=== PATIENT | female | born 1970 | race Caucasian/White ===

== ENCOUNTER 2018-12-24 12:16 | Inpatient (IN) | payer OTHER ==
[2018-12-24] MEDS: SODIUM CHLORIDE 0.9% 1L BAG IV* (12:35)
[2018-12-24 13:07] LABS: ADD MAN DIFF? NO
[2018-12-24 13:09] LABS: WHITE BLOOD COUNT 5.7 10^3/ul (4.8-10.8)
[2018-12-24 13:09] LABS: BASOPHILS % 0.5 % (0.0-2.0); EOSINOPHILS # 0.1 10^3/ul (0.0-0.5); EOSINOPHILS % 1.7 % (0.0-7.0); HEMATOCRIT 32.4 % (37.0-47.0); HEMOGLOBIN 10.5 g/dl (12.0-16.0); LYMPHOCYTES # 1.6 10^3/ul (0.8-2.9); LYMPHOCYTES % 27.4 % (15.0-51.0); MEAN CORPUSCULAR HEMOGLOBIN 28.1 pg (29.0-33.0); MEAN CORPUSCULAR HGB CONC 32.4 g/dl (32.0-37.0); MEAN CORPUSCULAR VOLUME 86.6 fl (82.0-101.0); MEAN PLATELET VOLUME 10.3 fl (7.4-10.4); MONOCYTE # 0.4 10^3/ul (0.3-0.9); MONOCYTES % 6.8 % (0.0-11.0); NEUTROPHIL # 3.6 10^3/ul (1.6-7.5); NEUTROPHILS % 63.3 % (39.0-77.0); PLATELET COUNT 207 10^3/UL (140-415); RED BLOOD COUNT 3.74 10^6/ul (4.20-5.40)
[2018-12-24] MEDS: CEFEPIME 2GM/50 ML (PMX) 50 ML IVPB (13:16)
[2018-12-24] MEDS: ACETAMINOPHEN 650 MG SUPP PR (13:17)
[2018-12-24 13:27] LABS: ALANINE AMINOTRANSFERASE 17 IU/L (13-69); ALKALINE PHOSPHATASE 85 IU/L (42-121); ANION GAP 13 (5-13); ASPARTATE AMINO TRANSFERASE 21 IU/L (15-46); BILIRUBIN,INDIRECT 0.4 mg/dl (0-1.1); BILIRUBIN,TOTAL 0.4 mg/dl (0.2-1.3); BLOOD UREA NITROGEN 14 mg/dl (7-20); CALCIUM 8.8 mg/dl (8.4-10.2); CARBON DIOXIDE 18 mmol/L (21-31); CHLORIDE 112 mmol/L (97-110); CREATININE 0.59 mg/dl (0.44-1.00); Estimated GFR > 60 mL/min (>60); GLUCOSE 183 mg/dl (70-220); SODIUM 143 mmol/L (135-144)
[2018-12-24 13:33] LABS: POTASSIUM 2.9 mmol/L (3.5-5.1)
[2018-12-24 13:36] LABS: INR 1.04; PROTIME 13.7 Sec (11.9-14.9); PT RATIO 1.1
[2018-12-24 13:39] LABS: TROPONIN-I < 0.012 ng/ml (0.000-0.120)
[2018-12-24] MEDS: VANCOMYCIN 1 GM (PMX) 250 ML IVPB (13:53)
[2018-12-24 14:06] LABS: ADD UMIC YES; UR ASCORBIC ACID 20 mg/dL (NEGATIVE); UR BACTERIA FEW /HPF (NONE SEEN); UR BILIRUBIN (Dip) NEGATIVE (NEGATIVE); UR BLOOD (Dip) NEGATIVE (NEGATIVE); UR CLARITY SLIGHTLY CLOUDY (CLEAR); UR COLOR AMBER (YELLOW); UR GLUCOSE (Dip) NEGATIVE (NEGATIVE); UR KETONES (Dip) NEGATIVE (NEGATIVE); UR LEUKOCYTE ESTERASE (Dip) NEGATIVE Leu/ul (NEGATIVE); UR MUCUS FEW /HPF (NONE SEEN); UR NITRITE (Dip) POSITIVE (NEGATIVE); UR RBC 1 /HPF (0-5); UR SPECIFIC GRAVITY (Dip) 1.023 (1.003-1.030); UR TOTAL PROTEIN (Dip) 2+ mg/dl (NEGATIVE); UR UROBILINOGEN (Dip) NEGATIVE (NEGATIVE); UR WBC 13 /HPF (0-5)
[2018-12-24 14:17] LABS: BARBITURATES Negative (NEGATIVE); BENZODIAZEPINES Negative (NEGATIVE); CANNABINOIDS Positive (NEGATIVE); COCAINE Negative (NEGATIVE); OPIATES Negative (NEGATIVE)
[2018-12-24 14:25] LABS: ACETAMINOPHEN < 10.0 ug/ml (10.0-30.0)
[2018-12-24 14:26] LABS: ETHANOL < 10.0 mg/dl (0-0); SALICYLATE < 1.0 mg/dl (5.0-30.0)
[2018-12-24 14:29] LABS: AMPHETAMINE/METHAMPHETAMINE POSITIVE (NEGATIVE)
[2018-12-24] MEDS ORDERED: ONDANSETRON 4 MG INJ (16:56)
[2018-12-24] MEDS: ONDANSETRON 4 MG INJ IV (17:40)
[2018-12-24] MEDS: POTASSIUM CHLORIDE (SR) 20 MEQ TAB PO (20:13)
[2018-12-24] MEDS ORDERED: ACETAMINOPHEN 325 MG TAB PO (20:30)
[2018-12-24] MEDS ORDERED: DOCUSATE SODIUM 100 MG CAP PO (20:30)
[2018-12-24] MEDS ORDERED: BISACODYL (EC) 5 MG TAB PO (20:30)
[2018-12-24] MEDS ORDERED: NACL 0.9% 3 ML SYG IV (20:30)
[2018-12-24] MEDS ORDERED: ONDANSETRON 4 MG INJ IV (20:30)
[2018-12-24] MEDS ORDERED: LORAZEPAM 2 MG INJ IV (20:30)
[2018-12-24] MEDS: 1/2 NS + KCL 20 MEQ 1,000 ML IV (21:30)
[2018-12-24] MEDS: HALOPERIDOL 5 MG INJ IM (22:23)
[2018-12-24] MEDS: LORAZEPAM 2 MG INJ IV (22:24)
[2018-12-24] MEDS: POTASSIUM CHLORIDE 100 ML IVPB (22:29)
[2018-12-24] MEDS: MAGNESIUM SULFATE 1 GM/D5W 100 ML IVPB (22:29)
[2018-12-24] MEDS: SOD CHLORIDE 0.9% 1,000 ML IV (22:36)
[2018-12-24 22:38] LABS: MAGNESIUM 1.6 mg/dl (1.7-2.5)
[2018-12-24 22:47] LABS: B-TYPE NATRIURETIC PEPTIDE 111 PG/ML (0-125)
[2018-12-25] MEDS: POTASSIUM CHLORIDE 100 ML IVPB (01:56)
[2018-12-25] MEDS ORDERED: VANCOMYCIN IV PER PHARMACY XX (05:00)
[2018-12-25] MEDS: VANCOMYCIN 1 GM 250 ML IVPB (06:35)
[2018-12-25 06:56] LABS: ADD MAN DIFF? NO
[2018-12-25 06:58] LABS: WHITE BLOOD COUNT 9.4 10^3/ul (4.8-10.8)
[2018-12-25 06:58] LABS: BASOPHILS % 0.4 % (0.0-2.0); EOSINOPHILS % 0.2 % (0.0-7.0); HEMATOCRIT 30.3 % (37.0-47.0); HEMOGLOBIN 9.8 g/dl (12.0-16.0); LYMPHOCYTES # 1.5 10^3/ul (0.8-2.9); LYMPHOCYTES % 15.5 % (15.0-51.0); MEAN CORPUSCULAR HEMOGLOBIN 28.3 pg (29.0-33.0); MEAN CORPUSCULAR HGB CONC 32.3 g/dl (32.0-37.0); MEAN CORPUSCULAR VOLUME 87.6 fl (82.0-101.0); MEAN PLATELET VOLUME 10.3 fl (7.4-10.4); MONOCYTE # 0.4 10^3/ul (0.3-0.9); MONOCYTES % 4.1 % (0.0-11.0); NEUTROPHIL # 7.4 10^3/ul (1.6-7.5); NEUTROPHILS % 79.3 % (39.0-77.0); PLATELET COUNT 175 10^3/UL (140-415); RED BLOOD COUNT 3.46 10^6/ul (4.20-5.40); RED CELL DISTRIBUTION WIDTH 16.4 % (11.5-14.5)
[2018-12-25 07:19] LABS: HEMOGLOBIN A1C 7.4 % (0-5.9)
[2018-12-25 07:25] LABS: MAGNESIUM 1.7 mg/dl (1.7-2.5)
[2018-12-25 07:28] LABS: ALANINE AMINOTRANSFERASE 22 IU/L (13-69); ALBUMIN 2.9 g/dl (3.3-4.9); ALKALINE PHOSPHATASE 69 IU/L (42-121); ANION GAP 7 (5-13); ASPARTATE AMINO TRANSFERASE 18 IU/L (15-46); BILIRUBIN,INDIRECT 0.6 mg/dl (0-1.1); BILIRUBIN,TOTAL 0.6 mg/dl (0.2-1.3); BLOOD UREA NITROGEN 10 mg/dl (7-20); CALCIUM 8.4 mg/dl (8.4-10.2); CARBON DIOXIDE 24 mmol/L (21-31); CHLORIDE 112 mmol/L (97-110); CHOL/HDL RATIO 2.3 RATIO; CHOLESTEROL 105 mg/dl (100-200); CREATININE 0.68 mg/dl (0.44-1.00); Estimated GFR > 60 mL/min (>60); GLUCOSE 111 mg/dl (70-220); HDL CHOLESTEROL 45 mg/dl (34-88); LDL CHOLESTEROL,CALCULATED 49 mg/dl; POTASSIUM 3.9 mmol/L (3.5-5.1); SODIUM 143 mmol/L (135-144); TOTAL PROTEIN 6.1 g/dl (6.1-8.1); TRIGLYCERIDES 54 mg/dl (0-149)
[2018-12-25] MEDS: CEFEPIME 2GM/50 ML (PMX) 50 ML IVPB ×2 (08:49→21:24)
[2018-12-25] MEDS ORDERED: POTASSIUM CHLORIDE 100 ML IVPB (09:00)
[2018-12-25] MEDS: MAGNESIUM SULFATE 2 GM/50 ML 50 ML IVPB (10:34)
[2018-12-25] MEDS: HALOPERIDOL 5 MG INJ IM (10:43)
[2018-12-25] MEDS: LORAZEPAM 2 MG INJ IV (11:26)
[2018-12-25 18:18] LABS: C-REACTIVE PROTEIN 5.6 mg/dl (0.0-0.9)
[2018-12-25] MEDS: VANCOMYCIN HCL 1.5 GM in SOD CHLORIDE 0.9% 250 ML IVPB (18:31)
[2018-12-25] MEDS: DAKINS 0.0125%(1/40) 473 ML SOLUTION TP (18:32)
[2018-12-25 18:57] LABS: PROCALCITONIN 0.06 ng/mL (0.00-0.10)
[2018-12-25 19:07] LABS: ERYTHROCYTE SEDIMENTATION RATE 25 mm/Hr (0-20)
[2018-12-25] MEDS: SOD CHLORIDE 0.9% 1,000 ML IV (22:51)
[2018-12-26] MEDS: LORAZEPAM 2 MG INJ IV (02:49)
[2018-12-26] MEDS: DAKINS 0.0125%(1/40) 473 ML SOLUTION TP ×2 (04:30→10:39)
[2018-12-26] MEDS: VANCOMYCIN HCL 1.5 GM in SOD CHLORIDE 0.9% 250 ML IVPB (05:55)
[2018-12-26 06:57] LABS: ADD MAN DIFF? NO
[2018-12-26 07:07] LABS: BASOPHILS % 0.5 % (0.0-2.0); EOSINOPHILS # 0.2 10^3/ul (0.0-0.5); EOSINOPHILS % 4.1 % (0.0-7.0); LYMPHOCYTES % 21.9 % (15.0-51.0); MEAN CORPUSCULAR HGB CONC 30.3 g/dl (32.0-37.0); MEAN CORPUSCULAR VOLUME 92.4 fl (82.0-101.0); MEAN PLATELET VOLUME 10.6 fl (7.4-10.4); MONOCYTE # 0.3 10^3/ul (0.3-0.9); MONOCYTES % 7.3 % (0.0-11.0); NEUTROPHIL # 2.9 10^3/ul (1.6-7.5); PLATELET COUNT 153 10^3/UL (140-415); RED BLOOD COUNT 3.57 10^6/ul (4.20-5.40); RED CELL DISTRIBUTION WIDTH 16.2 % (11.5-14.5)
[2018-12-26 07:07] LABS: WHITE BLOOD COUNT 4.4 10^3/ul (4.8-10.8)
[2018-12-26 07:27] LABS: ALANINE AMINOTRANSFERASE 13 IU/L (13-69); ALBUMIN 2.9 g/dl (3.3-4.9); ALKALINE PHOSPHATASE 65 IU/L (42-121); ANION GAP 7 (5-13); ASPARTATE AMINO TRANSFERASE 16 IU/L (15-46); BILIRUBIN,INDIRECT 0.4 mg/dl (0-1.1); BILIRUBIN,TOTAL 0.4 mg/dl (0.2-1.3); BLOOD UREA NITROGEN 12 mg/dl (7-20); CALCIUM 8.1 mg/dl (8.4-10.2); CARBON DIOXIDE 21 mmol/L (21-31); CHLORIDE 114 mmol/L (97-110); CREATININE 0.67 mg/dl (0.44-1.00); Estimated GFR > 60 mL/min (>60); GLUCOSE 76 mg/dl (70-220); POTASSIUM 3.5 mmol/L (3.5-5.1); SODIUM 142 mmol/L (135-144); TOTAL PROTEIN 6.1 g/dl (6.1-8.1)
[2018-12-26 08:06] LABS: HIV 1&2 ANTIBODY NEGATIVE (NEGATIVE)
[2018-12-26] MEDS: CEFEPIME 2GM/50 ML (PMX) 50 ML IVPB ×2 (10:39→20:36)
[2018-12-26] MEDS: SOD CHLORIDE 0.9% 1,000 ML IV (14:32)
[2018-12-27] MEDS: DAKINS 0.0125%(1/40) 473 ML SOLUTION TP (09:17)
[2018-12-27] MEDS: CEFEPIME 2GM/50 ML (PMX) 50 ML IVPB ×2 (09:17→21:11)
[2018-12-27] MEDS: ACETAMINOPHEN 325 MG TAB PO ×2 (13:36→21:11)
[2018-12-27 15:45] LABS: ADD MAN DIFF? NO
[2018-12-27 15:48] LABS: WHITE BLOOD COUNT 3.7 10^3/ul (4.8-10.8)
[2018-12-27 15:48] LABS: BASOPHILS % 0.5 % (0.0-2.0); EOSINOPHILS # 0.1 10^3/ul (0.0-0.5); EOSINOPHILS % 3.8 % (0.0-7.0); HEMATOCRIT 31.5 % (37.0-47.0); HEMOGLOBIN 10.1 g/dl (12.0-16.0); MEAN CORPUSCULAR HEMOGLOBIN 28.4 pg (29.0-33.0); MEAN CORPUSCULAR HGB CONC 32.1 g/dl (32.0-37.0); MEAN CORPUSCULAR VOLUME 88.5 fl (82.0-101.0); MEAN PLATELET VOLUME 10.6 fl (7.4-10.4); MONOCYTE # 0.3 10^3/ul (0.3-0.9); NEUTROPHIL # 2.3 10^3/ul (1.6-7.5); NEUTROPHILS % 61.4 % (39.0-77.0); PLATELET COUNT 175 10^3/UL (140-415); RED BLOOD COUNT 3.56 10^6/ul (4.20-5.40); RED CELL DISTRIBUTION WIDTH 15.9 % (11.5-14.5)
[2018-12-27 16:09] LABS: ALANINE AMINOTRANSFERASE 17 IU/L (13-69); ALBUMIN 3.1 g/dl (3.3-4.9); ALBUMIN/GLOBULIN RATIO 0.88; ALKALINE PHOSPHATASE 67 IU/L (42-121); ANION GAP 9 (5-13); ASPARTATE AMINO TRANSFERASE 13 IU/L (15-46); BILIRUBIN,INDIRECT 0.3 mg/dl (0-1.1); BILIRUBIN,TOTAL 0.3 mg/dl (0.2-1.3); BLOOD UREA NITROGEN 11 mg/dl (7-20); CALCIUM 8.8 mg/dl (8.4-10.2); CARBON DIOXIDE 22 mmol/L (21-31); CHLORIDE 109 mmol/L (97-110); CREATININE 0.57 mg/dl (0.44-1.00); Estimated GFR > 60 mL/min (>60); GLUCOSE 213 mg/dl (70-220); POTASSIUM 3.7 mmol/L (3.5-5.1); SODIUM 140 mmol/L (135-144); TOTAL PROTEIN 6.6 g/dl (6.1-8.1)
== END 2018-12-28 07:25 | disposition left against medical advice (07) | DRG 853 ==
LOC: TEL 12-26 11:55 → E/R 12:16 → TEL 20:02
PROVIDERS: Family Medicine
PROC: 0JBQ0ZZ Excision of Right Foot Subcutaneous Tissue and Fascia, Open Approach (ICD-10-PCS; principal; 2018-12-27)
DX: A41.50 Gram-negative sepsis, unspecified (principal); J18.9 Pneumonia, unspecified organism; G93.41 Metabolic encephalopathy; E11.621 Type 2 diabetes mellitus with foot ulcer; E11.42 Type 2 diabetes mellitus with diabetic polyneuropathy; Z59.0 Homelessness; T67.8XXA Other effects of heat and light, initial encounter; F15.90 Other stimulant use, unspecified, uncomplicated; F12.90 Cannabis use, unspecified, uncomplicated; E87.6 Hypokalemia; D64.9 Anemia, unspecified
CPT/HCPCS: 36415; 70450; 71045; 71250; 73630; 73718; 80053; 80061; 80307; 81001; 81025; 83036; 83605; 83735; 83880; 84145; 84443; 84484; 85025; 85610; 85651; 85730; 86140; 86703; 87040-91; 87070; 87081; 87086; 92610; 93005; 93306; 93922; 96361; 96374; 96375; 99285-25